=== PATIENT | male | born 1975 | race Two or more races ===

== ENCOUNTER 2025-04-15 19:48 | Emergency (ER) | payer SELFPAY ==
--- OUTSIDE RECORDS SUMMARY | 2018-09-04 06:46 | XMS_ITS | Continuity of Care Document ---
Author Organization [facility] Address [address] [place] [address] Phone Care Team Providers Care Senior Games Technician Name Role Phone AAA Provider MD, Test Unavailable Unavailabl e Advance Directives Directive Yes / No Effective Date File Name No Information Encounters Encounter Description Practice Location Reason(s) For Visit Diagnoses Date Provider Providers Copied on Encounter [facility], [address], [place], [place], [id number], [place] tel:[phone] Clinical Services Department No Information AAA Provider Test. [address] [place], [address], [place]. tel:[phone] Family History Family Member Type Diagnosis Age At Onset No Information Payers Payer name Insurance type Covered republican ID Authoriza tion(s) No Information Social History Type Description Quantity Date Captured Comments Alcohol Use Details Unknown Caffeine Use Details Unknown Tobacco Use Status No Information Smoking Status No Information Sex Male Chief Complaint And Reason For Visit No Information Reason For Referral Reason For Referral No Information Plan Of Treatment Date Type Action Status Goal HIV Routine Screening. Due o n due Goal Dental exam. Due on due Goal Tdap. Due on due Goal Influenza vaccine. Due on due Goal Lipid panel. Due on due Goal Td vaccine. Due on 19 due Goal Depression screening. Due on Darek-31-2019 due History Of Present Illness Encounter Date Complaint History Of Prese nt Illness No Information Functional Status Date Functional Assessmen t No Information Instructions Date Instruction Additional Infor mation No Information Assessments Type Assessment Date No Information Patient Care Teams Name Effective Dates (start - stop) Status Members No Information
--- NOTE | ~2025-04-15 | XR_ITS ---
CLINICAL HISTORY: chest pain, cough, hx HIV 2 view chest x-ray Comparison: None provided Findings: Mild left lower lobe atelectasis. No significant pleural effusion or pneumothorax. Heart size is normal. No acute fracture. IMPRESSION: Mild left lower lobe atelectasis. This document has been electronically signed by: Gagan Piña MD on 04/15/2025 20:38:27
--- NOTE | 2025-04-15 19:51 | ECG_ITS ---
Test Reason : CP Blood Pressure : */* mmHG Vent. Rate : 80 BPM Atrial Rate : 80 BPM P-R Int : 142 ms QRS Dur : 78 ms QT Int : 374 ms P-R-T Axes : 43 34 35 degrees QTcB Int : 431 ms Normal sinus rhythm Normal ECG No previous ECGs available Referred By: Generic ED Physician Electronically Signed By: LUCIE ORELLANA MD
[2025-04-15 19:54] VITALS: BP 140/77; PULSE 83; RESP 16; TEMP 36.4; O2SAT 97; BMI 26.8
--- NOTE | 2025-04-15 19:58 | ED.GENADULT ---
HPI - General Adult General Chief complaint: Chest Pain Stated complaint: CP Time Seen by Provider: 04/15/25 22:58 Source: patient Mode of arrival: ambulatory Limitations: no limitations History of Present Illness ED Provider: Sienna Mcmanus HPI narrative: A 49-year-old male here with history of COPD, and seasonal allergies passing through just for today wanted to get checked out. He has intermittent productive cough for a few months reports sometimes he coughs so hard he feels like he is going to pass out intermittently blood-tinged sputum not new for him. He is leaving to go back to [facility], did offer him behavioral health services to get him back on prep therapy but as he is passing through he would not be able to be established with this. Denied any concern for STIs no chest pain shortness of breath no abdominal pain or nausea or vomiting no diarrhea. First healthy now. Related Data Allergies Allergy/AdvReac Type Severity Reaction Status Date / Time Sulfa (Sulfonamide Allergy Anaphylaxis Verified 04/15/25 19:56 Antibiotics) Review of Systems Review of Systems: Yes all other systems are reviewed and are negative PMFSH Past Medical History Attestation statement: The following information was validated with the patient. Source: old records reviewed and nursing notes reviewed Social History Social History Advance Directives: No Advance Directives Information Provided: Yes Physical Exam ED Exam Exam: General: Appears in no acute distress, appears well nourished body habitus is normal, appears stated age. No septic or ill-appearing. Vitals reviewed normal, PMH/Social and Surgical hx reviewed including allergies and current medications. - reviewed for prior visits here Head: Normocephalic, no obvious trauma or skin lesions noted. Eyes: EOMI ENMT: moist oral mucosa tonsils surgically absent, bilateral cerumen impaction present Neck: trachea midline Cardiovascular: peripheral perfusion normal, Regular heart rate regular rhythm no JVD pulses equal and symmetric Respiratory: no respiratory distress lungs clear Abdomen: nondistended Extremities: warm and moving without difficulty Psych: Cooperative Neuro: Alert and oriented. Vital Signs: Vital Signs - 24 hr 04/15/25 19:54 04/15/25 22:53 04/15/25 23:11 Temperature 97.6 F 97.5 F 97.5 F Pulse Rate 83 71 71 Respiratory Rate 16 18 18 Blood Pressure 140/77 H 119/58 L 119/58 L Pulse Oximetry 97 96 96 Oxygen Delivery Method Room Air Room Air Room Air BMI result Body Mass Index 26.8 Course Course Course Narrative: This is a Rapid Medical Examination (RME) performed by Gila Thurston PA-C in triage. Full HPI, ROS, assessment and treatment plan per primary provider in the Main ED. Hx: 49 yo M here w/ chest pain x a few days. also reports cough x3 mo with blood tinged sputum. admits he's been off his HIV meds x 6 mo. Plan: labs, ekg, cxr Medical Decision Making Medical Decision Making [facility] Narrative: 49 y/o M here with H and P as above. Upon arrival to ED is he well appearing in no acute distress. I did a RME and ordered cardiac pulm work up. He was requesting to leave. He has reassuring work up and denies any symptoms at this time. As he is leaving the state tomorrow, I do have concerns about continuity of care and medication adherence. He has declined additional resources and feels well. He was advised to seek medical attn again for any changes. No acute processes idenitified today. Differential Diagnosis Differential Diagnoses: The differential diagnosis associated with the presentation includes Chronic cough, GERD, medication non adherence ACS, anxiety, pulmonary mass Admission/Observation Consideration of admission/observation: Escalation of care including admission/observation considered Patient would have been admitted to the hospital had his work up had any findings where hospital admission was appropriate and his clinical presentation warranted hospital admission. Lab Data [facility] Lab Attestation statement: I reviewed the patient's lab results. 04/15/25 19:58 04/15/25 19:58 Labs: Lab Results 04/15/25 Range/Units 19:58 WBC 6.5 (4.8-10.8) X10*3/uL RBC 4.93 (4.60-5.80) X10*6/uL Hgb 13.9 L (14.0-18.0) g/dl Hct 40.0 L (42.0-52.0) % MCV 81.1 (80.0-98.0) fL MCH 28.2 (27.0-33.0) pg MCHC 34.8 (31.0-36.0) g/dl RDW 13.1 (11.0-16.0) % Plt Count 215 (160-400) X10*3/uL MPV 10.9 (9.4-12.4) fL Immature Gran % (Auto) 0.5 H (0.0-0.4) % Neut % (Auto) 45.3 (45-73) % Lymph % (Auto) 37.7 (20-40) % [place] % (Auto) 10.4 (2-11) % Eos % (Auto) 5.6 H (0-4) % Baso % (Auto) 0.5 (0-2) % Lymph # (Auto) 2.4 (1.2-4.9) X10*3/uL [place] # (Auto) 0.7 (0.1-1.2) X10*3/uL Eos # (Auto) 0.4 (0.0-0.4) X10*3/uL Baso # (Auto) 0.0 (0.0-0.2) X10*3/uL Abs Immat Gran (auto) 0.03 (0.00-0.03) X10*3/uL Absolute Neuts (auto) 2.9 (2.0-8.3) x10*3/uL Absolute Nucleated RBC 0.000 (0.0-0.012) X10*3/uL Nucleated RBC % (auto) 0.0 (0.0-0.2) /100WBC Sodium 142 (135-145) mmol/L Potassium 3.9 (3.3-5.1) mmol/L Chloride 111 H (96-108) mmol/L Carbon Dioxide 23 (22-29) mmol/L Anion Gap 12 (12-20) BUN 8 L (9-16) mg/dL Creatinine 0.91 (0.5-1.4) mg/dL Estim Creat Clear Calc 112.9 Estimated GFR > 60 Random Glucose 84 (60-115) mg/dL Calcium 8.9 (8.4-10.2) mg/dL Troponin I High Sens < 2.7 (<3.5-35.0) ng/L B-Natriuretic Peptide < 10 (<100) pg/mL Independent Interpretation I performed an independent interpretation of an: EKG and Plain X-Ray Interpretation: No overt evidence of STEMI. No evidence of Brugada's sign, delta wave, epsilon wave, significantly prolonged QTc, or malignant arrhythmia No widened mediastinum no cavitary lesions no pneumonia Radiology Impression Discussion of test interpretation with radiology: I have reviewed the radiologist's reading. Radiologist Impression: Mild left lower lobe atelectasis otherwise no significant findings Tests considered The following testing was considered but not selected: Would have considered CTA had patient felt short of breath or had any pleuritic pain he is now asymptomatic Prescription Management I considered prescription management with: Pain Medication Chronic Conditions Patient?s care impacted by: Other (HIV) offered outpatient services, he declined he is driving out of state in next 24 hours Social Determinants Patient?s care significantly limited by Social Determinants of Health including: Problems related to primary support group and Other Social Determinant of Health Discharge Plan Discharge Clinical Impression: Chronic cough, Chest pain Patient Disposition: Home, Self-Care Instructions: Chest Pain (DC) Additional Instructions: You were seen in the emergency department today due to chronic cough and intermittent chest pain. You had a thorough workup drooling out any life-threatening causes such as aortic dissection, heart attack, or pericarditis. As your currently asymptomatic and just passing through it would have referred you to a local place to help you reestablished with your pep therapy. Is recommended that you do address her seasonal allergies and taking her allergy medicine twice a day please go to the closest emergency department should you develop any new or concerning symptoms safe travels Interventions: ED Discharge Assessment Last Done: 04/15/25 23:11 Discharge Date/Time: 04/15/25 23:40 Print Language: Romanian
[2025-04-15 20:01] LABS: MANUAL DIFF FLAG NO
[2025-04-15 20:07] LABS: Hematocrit 40.0 % (42.0-52.0); Hemoglobin 13.9 g/dl (14.0-18.0); Imm Gran Abs Auto 0.03 X10*3/uL (0.00-0.03); Imm Gran Pct Auto 0.5 % (0.0-0.4); Lymphocytes Absolute Auto 2.4 X10*3/uL (1.2-4.9); Mean Corpuscular HGB Conc 34.8 g/dl (31.0-36.0); Mean Corpuscular Hemoglobin 28.2 pg (27.0-33.0); Mean Corpuscular Volume 81.1 fL (80.0-98.0); NRBC Abs Auto 0.000 X10*3/uL (0.0-0.012); NRBC Pct Auto 0.0 /100WBC (0.0-0.2); Platelet Count 215 X10*3/uL (160-400); Red Blood Count 4.93 X10*6/uL (4.60-5.80); White Blood Count 6.5 X10*3/uL (4.8-10.8)
[2025-04-15 20:13] LABS: Anion Gap 12 (12-20); Blood Urea Nitrogen 8 mg/dL (9-16); Calcium 8.9 mg/dL (8.4-10.2); Carbon Dioxide 23 mmol/L (22-29); Chloride 111 mmol/L (96-108); Creatinine Clr Calc Pharmacy 112.9; Estimated Glomerular Filt Rate > 60; Potassium 3.9 mmol/L (3.3-5.1); Sodium 142 mmol/L (135-145)
[2025-04-15 20:22] LABS: Troponin-I High Sensitivity < 2.7 ng/L (<3.5-35.0)
[2025-04-15 20:54] LABS: B Type Natriuretic Peptide < 10 pg/mL (<100)
[2025-04-15 22:53] VITALS: BP 119/58; PULSE 71; RESP 18; TEMP 36.4; O2SAT 96
[2025-04-15 23:11] VITALS: BP 119/58; PULSE 71; RESP 18; TEMP 36.4; O2SAT 96
== END 2025-04-15 23:40 | disposition home or self-care (01) ==
LOC: HO.ED 23:21
PROVIDERS: Physician Assistant Medical; Emergency Provider Emergency Medicine
DX: R05.3 Chronic cough (principal); R07.89 Other chest pain; R06.02 Shortness of breath; J44.9 Chronic obstructive pulmonary disease, unspecified; Z21 Asymptomatic human immunodeficiency virus [HIV] infection status
CPT/HCPCS: 36415; 71046; 80048; 83880; 84484; 85025; 93005; 99283

== ENCOUNTER → 2025-04-15 19:51 | Outpatient (BNV) | payer SELFPAY | PROVIDERS: Emergency Provider Emergency Medicine; Visit Provider Internal Medicine Cardiovascular Disease | DX: R07.9 Chest pain, unspecified (principal) | CPT/HCPCS: 93010 ==

== ENCOUNTER → 2025-04-15 19:57 | Outpatient (BNV) | payer SELFPAY | PROVIDERS: Visit Provider Radiology Diagnostic Radiology | DX: R07.9 Chest pain, unspecified (principal) | CPT/HCPCS: 71046 ==